=== PATIENT | female | born 2000 | race African-American/Black ===

== ENCOUNTER 2023-04-18 04:22 | Emergency (ER) | payer OTHER ==
[~2023-04-18] VITALS: Ht 142.2 cm; Wt 53.8 kg
[2023-04-18] MEDS ORDERED: ACETAMINOPHEN TAB 650MG DOSE (2X325MG) PO ONE (08:20)
[2023-04-18 09:52] LABS: BASO % 0.3 % (0.0-1.0); EOS # 0.4 10^3/uL (0.0-0.5); EOS % 3.4 % (0.0-3.0); HEMOGLOBIN 13.2 g/dl (12.0-15.5); LYMPH # 1.8 10^3/uL (1.5-5.0); LYMPH % 14.8 % (24.0-44.0); MEAN CORPUSCULAR HEMOGLOBIN 26.7 pg (27.0-33.0); MEAN CORPUSCULAR HGB CONC 33.8 g/dl (32.0-36.5); MEAN CORPUSCULAR VOLUME 78.9 fl (80.0-96.0); MONO # 0.8 10^3/uL (0.0-0.8); MONO % 6.4 % (2.0-8.0); NEUTROPHILS # 9.2 10^3/uL (1.5-8.5); NEUTROPHILS % 74.6 % (36.0-66.0); PLATELET COUNT, AUTOMATED 244 10^3/uL (150-450); RED BLOOD COUNT 4.94 10^6/uL (4.00-5.40); WHITE BLOOD COUNT 12.3 10^3/uL (4.0-10.0)
[2023-04-18 10:09] VITALS: BP 117/80; TEMP 99.6; O2SAT 98
== END 2023-04-18 10:12 | disposition home or self-care (01) ==
LOC: M ED 04:22
DX: O99.891 Other specified diseases and conditions complicating pregnancy (principal); R10.9 Unspecified abdominal pain; Z3A.00 Weeks of gestation of pregnancy not specified

== ENCOUNTER → 2023-09-23 | Outpatient (CLI) | payer OTHER ==
[2023-09-23 13:56] LABS: SWEAT TEST RT ARM 53.8 MEQ CL/L (0.0-40.0); WEIGHT OF SWEAT RT ARM 27.2 MG
[2023-09-23 13:57] LABS: SWEAT TEST LFT ARM 49.9 MEQ CL/L (0.0-40.0); WEIGHT OF SWEAT LFT ARM 36.2 MG
== END ==
LOC: M LAB 10:19
PROVIDERS: ATTEND Nurse Practitioner Adult Health
DX: E84.9 Cystic fibrosis, unspecified (principal)